=== PATIENT | male | born 1955 | race Caucasian/White ===

== ENCOUNTER 2020-02-07 13:16 | Emergency (ER) | payer SELFPAY ==
[~2020-02-07] VITALS: Ht 177.8 cm; Wt 81.8 kg
[2020-02-07 13:20] VITALS: BP 148/72
[2020-02-07] MEDS ORDERED: SULF1TAB24 PO (13:36)
[2020-02-07] MEDS ORDERED: NAPR-514 PO (13:36)
--- NOTE | 2020-02-07 13:37 | PHYS DOC ---
General Adult EDM: Chief Complaint: INSECT BITE HPI: HPI: Patient is a 64-year-old male who presents with what he describes as a spider bite in his pubic area. He states is become painful and has a dark center surrounded by a some redness. He denies any fever chills or sweats. He denies any testicular pain. He is tried to squeeze the pus out of this without much success. He states he noticed it yesterday does not remember getting bitten by a spider but it is possible he says there are spiders where he lives. He also states that he thinks he stepped on a nail a couple of days ago with his right foot he does not think it went through the sole of his shoe but he cannot remember. [] Review of Systems: Review of Systems: Constitutional: Denies fever or chills. [] Eyes: Denies change in visual acuity. [] HENT: Denies nasal congestion or sore throat. [] Respiratory: Denies cough or shortness of breath. [] Cardiovascular: Denies chest pain or edema. [] GI: Denies abdominal pain, nausea, vomiting, bloody stools or diarrhea. [] : Denies dysuria. [] Musculoskeletal: Denies back pain or joint pain. [] Integument: Per HPI. [] Neurologic: Denies headache, focal weakness or sensory changes. [] Endocrine: Denies polyuria or polydipsia. [] Lymphatic: Denies swollen glands. [] Psychiatric: Denies depression or anxiety. [] Heart Score: Risk Factors: Risk Factors: DM, Current or recent (<one month) smoker, HTN, HLP, family history of CAD, obesity. Risk Scores: Score 0 - 3: 2.5% MACE over next 6 weeks - Discharge Home Score 4 - 6: 20.3% MACE over next 6 weeks - Admit for Clinical Observation Score 7 - 10: 72.7% MACE over next 6 weeks - Early Invasive Strategies Physical Exam: PE: Constitutional: Well developed, well nourished, mild distress, non-toxic appeara nce. [] HENT: Normocephalic, atraumatic, bilateral external ears normal, oropharynx moist, no oral exudates, nose normal. [] Eyes: PERRLA, EOMI, conjunctiva normal, no discharge. [] Neck: Normal range of motion, no tenderness, supple, no stridor. [] Cardiovascular:Heart rate regular rhythm, no murmur [] Lungs & Thorax: Bilateral breath sounds clear to auscultation [] Abdomen: Bowel sounds normal, soft, no tenderness, no masses, no pulsatile masses. [] Skin: Smaller than a dime size area of erythema with a tiny necrotic center no underlying induration or palpable abscess this is an the pubic area. [] Back: No tenderness, no CVA tenderness. [] Extremities: No tenderness, no cyanosis, no clubbing, ROM intact, no edema. [] Neurologic: Alert and oriented X 3, normal motor function, normal sensory func tion, no focal deficits noted. [] Psychologic: Affect normal, judgement normal, mood normal. [] EKG: EKG: [] Radiology/Procedures: Radiology/Procedures: [] Course & Med Decision Making: Course & Med Decision Making Pertinent Labs and Imaging studies reviewed. (See chart for details) [] Dragon Disclaimer: Dragon Disclaimer: This electronic medical record was generated, in whole or in part, using a voice recognition dictation system. Departure Departure Impression: Primary Impression: Cellulitis of groin, right Additional Impression: Puncture wound of right foot Qualified Codes: S91.331A - Puncture wound without foreign body, right foot, initial encounter Disposition: 01 HOME, SELF-CARE Condition: STABLE Referrals: NO PCP (PCP) Patient Instructions: Cellulitis, Puncture Wound, Spider Bite Additional Instructions: Warm compresses to the area several times daily. It is very important that you take all of your antibiotics as directed. Return immediately to the emergency department should your symptoms worsen Scripts Levofloxacin (LEVAQUIN) 500 Mg Tablet 1 TAB PO DAILY for urinary tract infection, #10 TAB Prov: NIELS GODINEZ DO 02/07/20 Naproxen (NAPROXEN) 500 Mg Tablet 1 TAB PO BID PRN for PAIN, #30 TAB 1 Refill Prov: NIELS GODINEZ DO 02/07/20 Sulfamethoxazole/Trimethoprim (BACTRIM DS TABLET) 1 Each Tablet 1 TAB PO BID for 10 Days, #20 TAB Prov: NIELS GODINEZ DO 02/07/20 Justicifation of Admission Dx: Justifications for Admission: Justification of Admission Dx: No NIELS GODINEZ DO Feb 07, 2020 13:37
[2020-02-07] MEDS ORDERED: LEVO500T59 PO (13:41)
[2020-02-07] MEDS ORDERED: HYDROcodone/APAP 5/325MG 1 TAB TABLET PO ONE (13:45)
[2020-02-07] MEDS ORDERED: TETANUS AND DIPHTHERIA TOX/PF 0.5 ML DISP.SYRIN. VAX IM ONE (13:45)
[2020-02-07] MEDS ORDERED: SMZ/TMP 800/160MG TABLET. PO ONE (13:45)
[2020-02-07] MEDS ORDERED: DIPH,PERTUSS(ACELL),TET VAC/PF 0.5 ML SYRINGE. VAX IM ONE (14:30)
== END 2020-02-07 14:30 | disposition home or self-care (01) ==
LOC: ER 13:16
DX: S91.331A Puncture wound without foreign body, right foot, initial encounter (principal); L03.314 Cellulitis of groin; W57.XXXA Bitten or stung by nonvenomous insect and other nonvenomous arthropods, initial encounter; Y93.89 Activity, other specified; Y92.89 Other specified places as the place of occurrence of the external cause; Y99.8 Other external cause status
CPT/HCPCS: 90471; 90715; 99284

== ENCOUNTER 2020-08-09 15:45 | Emergency (ER) | payer OTHER ==
[~2020-08-09] VITALS: Ht 177.8 cm; Wt 78.8 kg
[~2020-08-09 15:45] MED LIST: LEVO500T59 PO; NAPR-514 PO; SULF1TAB24 PO
[2020-08-09 17:20] LABS: BASO # 0.1 x10^3/uL (0.0-0.2); BASO % 1 % (0-3); EOS # 0.6 x10^3/uL (0.0-0.7); EOS % 9 % (0-3); HEMATOCRIT 38.7 % (39.0-53.0); HEMOGLOBIN 13.3 g/dL (13.0-17.5); LYMPH # 2.8 x10^3/uL (1.0-4.8); LYMPH % 42 % (24-48); MEAN CORPUSCULAR HEMOGLOBIN 38 pg (25-35); MEAN CORPUSCULAR HGB CONC 35 g/dL (31-37); MEAN CORPUSCULAR VOLUME 111 fL (79-100); MONO # 1.1 x10^3/uL (0.0-1.1); MONO % 16 % (0-9); NEUT # 2.1 x10^3/uL (1.8-7.7); NEUT % 32 % (31-73); PLATELET COUNT 199 x10^3/uL (140-400); RED BLOOD COUNT 3.47 x10^6/uL (4.30-5.70); RED CELL DISTRIBUTION WIDTH 14.5 % (11.5-14.5); WHITE BLOOD COUNT 6.8 x10^3/uL (4.0-11.0)
--- NOTE | 2020-08-09 17:30 | RAD ---
XR CHEST 1V History: Reason: cough / Spl. Instructions: / History: Comparison: None. Findings: Mild right mid and bibasilar ill-defined opacities. No pleural effusion. No pneumothorax. Normal hear t size. Impression: 1. Mild ill-defined opacities, may represent atelectasis or developing infiltrates including viral p neumonia. Electronically signed by: Mandeep Uriarte DO (08/09/2020 5:27 PM) [facility]
[2020-08-09 17:31] LABS: CALCIUM 8.3 mg/dL (8.5-10.1); CREATININE 0.8 mg/dL (0.7-1.3); GFR 97.6; POTASSIUM 3.5 mmol/L (3.5-5.1)
[2020-08-09 17:38] LABS: ALBUMIN 2.5 g/dL (3.4-5.0); ALBUMIN/GLOBULIN RATIO 0.5 (1.0-1.7); MAGNESIUM 2.1 mg/dL (1.8-2.4); TOTAL BILIRUBIN 1.9 mg/dL (0.2-1.0); TOTAL PROTEIN 7.1 g/dL (6.4-8.2)
[2020-08-09 18:01] LABS: PLT ESTIMATE ADEQUATE (ADEQUATE)
[2020-08-09 18:02] LABS: TARGET CELLS PRESENT
[2020-08-09 18:03] LABS: HOWELL-JOLLY BODIES PRESENT
[2020-08-09 18:15] LABS: BILIRUBIN,URINE SMALL (NEG); CLARITY,URINE CLEAR; COLOR,URINE AMBER; NITRITE,URINE POSITIVE (NEG); PH,URINE 5.5 (<5.0-8.0); PROTEIN,URINE NEGATIVE (NEG-TRACE)
[2020-08-09 18:17] LABS: AMPHETAMINE/METHAMPHETAMINE POS (NEG); BARBITURATES NEG (NEG); BENZODIAZEPINES NEG (NEG); CANNABINOIDS NEG (NEG); COCAINE NEG (NEG); METHADONE NEG (NEG); OPIATES NEG (NEG); PHENCYCLIDINE NEG (NEG)
[2020-08-09 18:25] LABS: BACTERIA,URINE MANY /HPF (0-FEW); HYALINE CASTS, URINE FEW /HPF
[2020-08-09 18:27] LABS: RBC,URINE 0 /HPF (0-2)
--- NOTE | 2020-08-09 18:43 | PHYS DOC ---
Past Medical History Past Medical History: No Pertinent History Past Surgical History: No Surgical History Smoking Status: Current Every Day Smoker Alcohol Use: Occasionally General Adult EDM: Chief Complaint: COUGH HPI: HPI: Patient is a 65 year old male who presents the ED today complaining of generalized body aches and a cough he has had for weeks. Patient denies any fever. Patient states he was staying with his brother who requested him to leave when he started walking. He states is worked for quite some time and now feels his muscles are cramping. He states he is not homeless. Reports history of smoking Review of Systems: Review of Systems: Constitutional: Reports muscle cramps, body aches,] denies fever or chills. [] Eyes: Denies change in visual acuity. [] HENT: Denies nasal congestion or sore throat. [] Respiratory: Reports cough, denies shortness of breath. [] Cardiovascular: Denies chest pain or edema. [] GI: Denies abdominal pain, nausea, vomiting, bloody stools or diarrhea. [] : Denies dysuria. [] Musculoskeletal: Denies back pain or joint pain. [] Integument: Denies rash. [] Neurologic: Denies headache, focal weakness or sensory changes. [] Psychiatric: Denies depression or anxiety. [] Heart Score: Risk Factors: Risk Factors: DM, Current or recent (<one month) smoker, HTN, HLP, family history of CAD, obesity. Risk Scores: Score 0 - 3: 2.5% MACE over next 6 weeks - Discharge Home Score 4 - 6: 20.3% MACE over next 6 weeks - Admit for Clinical Observation Score 7 - 10: 72.7% MACE over next 6 weeks - Early Invasive Strategies Current Medications: Current Medications Medications (Trade) Dose Ordered Sig/Kirsten Start Time Stop Time Status Last Admin Dose Admin Azithromycin (Zithromax) 500 mg 1X ONCE 08/09/20 18:45 08/09/20 18:46 UNV Dexamethasone Sodium Phosphate (Decadron) 10 mg 1X ONCE 08/09/20 19:00 08/09/20 19:01 Doxycycline Hyclate (Vibra-Tab) 100 mg 1X ONCE 08/09/20 18:45 08/09/20 18:46 UNV Ketorolac Tromethamine (Toradol 30mg Vial) 30 mg 1X ONCE 08/09/20 19:00 08/09/20 19:01 Allergies: Allergies: Allergies Coded Allergies Type Severity Reaction Last Updated Verified Penicillins Allergy Unknown SWELLING, RASH 02/07/20 Yes morphine Allergy Unknown SWELLING, RASH 02/07/20 Yes Physical Exam: PE: Constitutional: Well developed, well nourished, no acute distress, non-toxic appearance. [] HENT: Normocephalic, atraumatic, bilateral external ears normal, oropharynx moist, no oral exudates, nose normal. [] Eyes: PERRLA, EOMI, conjunctiva normal, no discharge. [] Neck: Normal range of motion, no tenderness, supple, no stridor. [] Cardiovascular:Heart rate regular rhythm, no murmur [] Lungs & Thorax: Diminished breath sounds Abdomen: Bowel sounds normal, soft, no tenderness, no masses, no pulsatile masses. [] Skin: Warm, dry, no erythema, no rash. [] Back: No tenderness, no CVA tenderness. [] Extremities: No tenderness, no cyanosis, no clubbing, ROM intact, no edema. [] Neurologic: Alert and oriented X 3, normal motor function, normal sensory function, no focal deficits noted. [] Psychologic: Flat affect, Current Patient Data: Labs: Laboratory Tests Test 08/09/20 17:00 08/09/20 17:47 White Blood Count 6.8 x10^3/uL (4.0-11.0) Red Blood Count 3.47 x10^6/uL (4.30-5.70) L Hemoglobin 13.3 g/dL (13.0-17.5) Hematocrit 38.7 % (39.0-53.0) L Mean Corpuscular Volume 111 fL (79-100) H Mean Corpuscular Hemoglobin 38 pg (25-35) H Mean Corpuscular Hemoglobin Concent 35 g/dL (31-37) Red Cell Distribution Width 14.5 % (11.5-14.5) Platelet Count 199 x10^3/uL (140-400) Neutrophils (%) (Auto) 32 % (31-73) Lymphocytes (%) (Auto) 42 % (24-48) Monocytes (%) (Auto) 16 % (0-9) H Eosinophils (%) (Auto) 9 % (0-3) H Basophils (%) (Auto) 1 % (0-3) Neutrophils # (Auto) 2.1 x10^3/uL (1.8-7.7) Lymphocytes # (Auto) 2.8 x10^3/uL (1.0-4.8) Monocytes # (Auto) 1.1 x10^3/uL (0.0-1.1) Eosinophils # (Auto) 0.6 x10^3/uL (0.0-0.7) Basophils # (Auto) 0.1 x10^3/uL (0.0-0.2) Platelet Estimate Adequate (ADEQUATE) Macrocytosis Mod Target Cells Present [place] Bodies Present Sodium Level 142 mmol/L (136-145) Potassium Level 3.5 mmol/L (3.5-5.1) Chloride Level 106 mmol/L (98-107) Carbon Dioxide Level 27 mmol/L (21-32) Anion Gap 9 (6-14) Blood Urea Nitrogen 11 mg/dL (8-26) Creatinine 0.8 mg/dL (0.7-1.3) Estimated GFR (Cockcroft-Gault) 97.6 BUN/Creatinine Ratio 14 (6-20) Glucose Level 94 mg/dL (70-99) Lactic Acid Level 2.0 mmol/L (0.4-2.0) Calcium Level 8.3 mg/dL (8.5-10.1) L Magnesium Level 2.1 mg/dL (1.8-2.4) Total Bilirubin 1.9 mg/dL (0.2-1.0) H Aspartate Amino Transferase (AST) 68 U/L (15-37) H Alanine Aminotransferase (ALT) 53 U/L (16-63) Alkaline Phosphatase 189 U/L (46-116) H Creatine Kinase 246 U/L (39-308) Creatine Kinase MB (Mass) 1.7 ng/mL (0.0-3.6) Creatine Kinase MB Relative Index 0.7 % (0-4) Troponin I Quantitative < 0.017 ng/mL (0.000-0.055) VU-Ppc-F-Type Natriuretic Peptide 60 pg/mL (0-124) Total Protein 7.1 g/dL (6.4-8.2) Albumin 2.5 g/dL (3.4-5.0) L Albumin/Globulin Ratio 0.5 (1.0-1.7) L Procalcitonin < 0.10 ng/mL (0.00-0.10) Urine Collection Type Unknown Urine Color Stacey Urine Clarity Clear Urine pH 5.5 (<5.0-8.0) Urine Specific [place] 1.025 (1.000-1.030) Urine Protein Negative mg/dL (NEG-TRACE) Urine Glucose (UA) Negative mg/dL (NEG) Urine Ketones (Stick) Negative mg/dL (NEG) Urine Blood Negative (NEG) Urine Nitrite Positive (NEG) Urine Bilirubin Small (NEG) Urine Urobilinogen Dipstick 1.0 mg/dL (0.2 mg/dL) Urine Leukocyte Esterase Moderate (NEG) Urine RBC 0 /HPF (0-2) Urine WBC 11-20 /HPF (0-4) Urine Squamous Epithelial Cells Many /LPF Urine Bacteria Many /HPF (0-FEW) Urine Hyaline Casts Few /HPF Urine Mucus Mod /LPF Urine Opiates Screen Neg (NEG) Urine Methadone Screen Neg (NEG) Urine Barbiturates Neg (NEG) Urine Phencyclidine Screen Neg (NEG) Urine Amphetamine/Methamphetamine Pos (NEG) Urine Benzodiazepines Screen Neg (NEG) Urine Cocaine Screen Neg (NEG) Urine Cannabinoids Screen Neg (NEG) Urine Ethyl Alcohol Pos (NEG) Laboratory Tests 08/09/20 17:00 Laboratory Tests 08/09/20 17:00 Vital Signs: Vital Signs Date Time Temp Pulse Resp B/P (MAP) Pulse Ox O2 Delivery O2 Flow Rate FiO2 08/09/20 17:30 98.2 95 19 149/69 (95) 97 Room Air 98.2 EKG: EKG: [] Radiology/Procedures: Radiology/Procedures: []PROCEDURE: PORTABLE CHEST 1V XR CHEST 1V History: Reason: cough / Spl. Instructions: / History: Comparison: None. Findings: Mild right mid and bibasilar ill-defined opacities. No pleural effusion. No pneumothorax. Normal heart size. Impression: 1. Mild ill-defined opacities, may represent atelectasis or developing in filtrates including viral pneumonia. Electronically signed by: Mandeep Katz DO (08/09/2020 5:27 PM) [facility] DICTATED and SIGNED BY: MANDEEP KATZ DO DATE: 08/09/20 [id number] 0 Course & Med Decision Making: Course & Med Decision Making Pertinent Labs and Imaging studies reviewed. (See chart for details) This is a 65-year-old male patient presented to the ED today complaining of generalized body aches, muscle cramps, and a cough. Patient states the cough and body aches have been going on for weeks. He states the muscle cramps began today after walking. CBC with nothing really acute, CK is normal, troponin is normal, UA positive for UTI, chest x-ray noted for possible pneumonia likely viral. Tested for Covid. Discharged home with Levaquin, given Decadron in the ED. He states he is not homeless so he was discharged home encouraged to consider smoking cessation Dragon Disclaimer: Dragon Disclaimer: This electronic medical record was generated, in whole or in part, using a voice recognition dictation system. Departure Departure Impression: Primary Impression: Person under investigation for COVID-19 Additional Impressions: Viral pneumonia UTI (urinary tract infection) Qualified Codes: N39.0 - Urinary tract infection, site not specified Disposition: 01 [place] HOME SELF CARE/HOMELESS Condition: STABLE Referrals: NO PCP (PCP) follow up with your doctor in one week Patient Instructions: Pneumonia, Adult, [id number], Urinary Tract Infection Additional Instructions: You were evaluated in the emergency room, you were noted to have urinary tract infection and viral pneumonia. We put you on antibiotics, ensure you complete them. Follow-up with your doctor in 1 to 2 weeks, consider smoking cessation. Scripts Levofloxacin (LEVOFLOXACIN) 500 Mg Tablet 1 TAB PO DAILY, #7 TAB Prov: LUCAS DE DIOS APRN 08/09/20 LUCAS DE DIOS APRN Aug 09, 2020 18:43
[2020-08-09] MEDS ORDERED: LEVO500T8 PO (18:56)
[2020-08-09] MEDS ORDERED: AZITHROMYCIN 250 MG TABLET. PO ONE (19:00)
[2020-08-09] MEDS ORDERED: DOXYCYCLINE HYCLATE 100 MG TABLET PO ONE (19:00)
[2020-08-09] MEDS ORDERED: DEXAMETHASONE SOD PHOS 20 MG/5 ML VIAL. IV ONE (19:00)
[2020-08-09] MEDS ORDERED: KETOROLAC 30 MG/ML VIAL. IVP ONE (19:00)
[2020-08-09 19:30] VITALS: BP 128/80
--- NOTE | 2020-08-10 03:07 | EKG ---
[facility] [address] [place] [address] Test Date: 2020-08-09 Test Time: 16:52:13 Pat Name: EFFIE WHARTON Department: Room: Gender: M Supervisor Lump Room: : 1955 Requested By: LUCAS DE DIOS Order Number: [id number] Reading MD: Measurements Intervals [place] Rate: 96 P: 5 UT: 162 QRS: -25 QRSD: 80 T: 30 QT: 342 QTc: 438 Interpretive Statements SINUS RHYTHM LEFTWARD AXIS QRS(T) CONTOUR ABNORMALITY CONSISTENT WITH INFERIOR INFARCT PROBABLY OLD T ABNORMALITY IN ANTERIOR LEADS ABNORMAL ECG RI6.01 No previous ECG available for comparison
--- NOTE | 2020-08-10 17:12 | NUR ---
IP: Attempted to contact pt concerning COVID results. No answer. Left a voicemail to return the call.
== END 2020-08-09 19:46 | disposition home or self-care (01) ==
LOC: ER 15:45
DX: N39.0 Urinary tract infection, site not specified (principal); Z20.822 Contact with and (suspected) exposure to COVID-19; J12.9 Viral pneumonia, unspecified; R05 Cough; R25.2 Cramp and spasm; F17.200 Nicotine dependence, unspecified, uncomplicated; Z88.0 Allergy status to penicillin; Z88.6 Allergy status to analgesic agent
CPT/HCPCS: 36415; 71045; 80053; 80307; 81001; 82553; 83605; 83735; 83880; 84145; 84484; 85025; 87040; 87086; 93005; 96374; 96375; 99285; C9803; J1100; J1885; U0003